=== PATIENT | male | born 1985 | race Caucasian/White ===

== ENCOUNTER 2018-05-16 12:54 | Emergency (ER) | payer SELFPAY ==
[~2018-05-16] VITALS: Ht 182.9 cm; Wt 95.3 kg
--- NOTE | 2018-05-16 13:08 | ED Upper Extremity ---
General Chief Complaint: Laceration Stated Complaint: HAND LAC Source: patient Exam Limitations: no limitations History of Present Illness Date Seen by Provider: May 16, 2018 Time Seen by Provider: 13:07 Initial Comments 32-year-old male who presents to the emergency room with complaints of laceration between his first and second finger of his right hand. He reports that he was using a nail gun while at work today when it kicked back and pinched his fingers. He has a 1 cm laceration into the webbing of the right hand between the first and second finger. Allergies and Home Medications Allergies Coded Allergies: No Known Drug Allergies (Unverified , 05/16/18) Past Wbpwnnn-Rnrknb-Bjkium Hx Patient Social History Alcohol Use: Occasionally Uses Recreational Drug Use: No Smoking Status: Never a Smoker Recent Foreign Travel: No Contact w/Someone Who Travel: No Past Medical History Surgeries: No Respiratory: No Cardiac: No Neurological: No Genitourinary: No Gastrointestinal: No Musculoskeletal: No Endocrine: No HEENT: No Cancer: No Psychosocial: No Integumentary: No Physical Exam Vital Signs Vital Signs - First Documented 05/16/18 12:58 Temp 96.1 Pulse 83 Resp 18 B/P (MAP) 125/77 (93) Pulse Ox 99 O2 Delivery Room Air Capillary Refill : Height, Weight, BMI Height: '" Weight: lbs. oz. kg; BMI Method: Progress/Results/Core Measures Results/Orders My Orders Orders - GIULIANO HUNT Lidocaine 1% Inj 20 Ml (Xylocaine 1% Inj (05/16/18 13:15) Dipht,Pertuss(Acell),Tet Adult (Boostrix (05/16/18 13:15) Medications Given in ED Current Medications Medications Dose Ordered Sig/Becca Route Start Time Stop Time Status Last Admin Dose Admin Diphtheria/ Tetanus/Acell Pertussis 0.5 ml ONCE ONCE IM 05/16/18 13:15 05/16/18 13:16 DC 05/16/18 13:15 0.5 ML Lidocaine HCl 20 ml ONCE ONCE INJ 05/16/18 13:15 05/16/18 13:16 DC 05/16/18 14:00 20 ML Vital Signs/I&O 05/16/18 05/16/18 12:58 14:06 Temp 96.1 Pulse 83 83 Resp 18 18 B/P (MAP) 125/77 (93) 125/77 (93) Pulse Ox 99 99 O2 Delivery Room Air Departure Impression Primary Impression: Laceration Disposition: 01 HOME, SELF-CARE Condition: Stable/Unchanged Departure-Patient Inst. Decision time for Depature: 13:52 Referrals: NO,LOCAL PHYSICIAN (PCP) Primary Care Physician Patient Instructions: Laceration Repair With Stitches (DC) Add. Discharge Instructions: Watch for signs of infection such as increased redness, swelling, drainage, pain. Return back to the emergency room for sutures out in 7 days. Tylenol and ibuprofen as needed for pain relief. Return back to the emergency room for worsening symptoms or concerns as needed. All discharge instructions reviewed with patient and/or family. Voiced understanding. Images Extremities-Upper 1 - Laceration GIULIANO HUNT May 16, 2018 13:08
[2018-05-16] MEDS ORDERED: TETANUS,DIPTH,PERTUSS P/F (BOOSTRIX) 0.5 ML VIAL IM ONE (13:15)
[2018-05-16] MEDS ORDERED: LIDOCAINE 1% INJ 20 ML 20 ML VIAL INJ ONE (13:15)
--- NOTE | 2018-05-16 14:01 | NUR ---
NEEDLE STICK WHEN INJECTION OF LIDOCAINE BY GIULIANO HUNT APRN. PATIENT DID NOT KNOW IF HE WANTED TO HAVE HIS BLOOD FRANDY. SANJEEV LAZARO FROM [facility] TO ROOM TO TALK WITH PATIET. WILL NOW CONSNTDiann HEDRICK FROM LAB TO ROOM TO DRAW BLOOD.
[2018-05-16 14:06] VITALS: BP 125/77
== END 2018-05-16 14:06 | disposition home or self-care (01) ==
LOC: EDUNIT# 12:54 → ER 12:56
DX: S61.411A Laceration without foreign body of right hand, initial encounter (principal); W29.4XXA Contact with nail gun, initial encounter; Y92.59 Other trade areas as the place of occurrence of the external cause; Y99.0 Civilian activity done for income or pay
CPT/HCPCS: 12001; 90715